=== PATIENT | male | born 1980 | race African-American/Black ===

== ENCOUNTER 2018-03-12 00:28 | Emergency (ER) | payer OTHER ==
--- NOTE | 2018-03-12 01:43 | PDOC ---
History of Present Illness <SánchezKristin - Last Filed: 03/12/18 05:47> - General History Source: Patient - History of Present Illness Initial Comments: 03/12/18 01:41 37 year old male presents c/o L ankle and knee pain. Patient states he was ambulating 2-3 days previous when he twisted his ankle and has been experiencing pain while ambulating and at rest since that time. Denies any fall , LOC, head trauma. Ambulating and performing ADL's with intermittent pain. Patient denies any chest pain, shortness of breath, abdominal pain, nausea/ vomiting, diarrhea/constipation, fevers/chills. <Malaika Zepeda - Last Filed: 03/12/18 05:48> - General Chief Complaint: Injury Stated Complaint: KNEE AND ANKLE PAIN Time Seen by Provider: 03/12/18 01:36 Past History <SánchezKristin - Last Filed: 03/12/18 05:47> - Past Medical History Asthma: Yes - Immunization History Immunization Up to Date: No - Suicide/Smoking/Psychosocial Hx Smoking Status: No Smoking History: Never smoked Have you smoked in the past 12 months: No Number of Cigarettes Smoked Daily: 10 Information on smoking cessation initiated: No 'Breaking Loose' booklet given: 05/18/17 Hx Alcohol Use: No Drug/Substance Use Hx: No Substance Use Type: None <Malaika eZpeda - Last Filed: 03/12/18 05:48> - Past Medical History Allergies/Adverse Reactions: Allergies Allergy/AdvReac Type Severity Reaction Status Date / Time crab Allergy Verified 03/12/18 01:40 Home Medications: Ambulatory Orders NK [No Known Home Medication] 05/18/17 Review of Systems - Review of Systems Constitutional: No: Chills, Fever HEENTM: No: Recent change in vision Respiratory: No: Cough, Shortness of Breath Cardiac (ROS): No: Chest Pain, Lightheadedness, Palpitations, Syncope ABD/GI: No: Constipated, Diarrhea, Nausea, Vomiting : No: Burning, Dysuria <Malaika Zepeda - Last Filed: 03/12/18 05:48> *Physical Exam - Vital Signs Last Vital Signs Temp Pulse Resp BP Pulse Ox 98.2 F 87 18 125/92 99 03/12/18 01:35 03/12/18 01:35 03/12/18 01:35 03/12/18 01:35 03/12/18 01:35 <Kristin Sánchez - Last Filed: 03/12/18 05:47> - Vital Signs Last Vital Signs Temp Pulse Resp BP Pulse Ox 98.2 F 87 18 125/92 99 03/12/18 01:35 03/12/18 01:35 03/12/18 01:35 03/12/18 01:35 03/12/18 01:35 - Physical Exam General Appearance: Yes: Nourished, Appropriately Dressed HEENT: positive: EOMI, TRU Neck: positive: Trachea midline, Supple Respiratory/Chest: positive: Lungs Clear Cardiovascular: positive: S1, S2 Vascular Pulses: Doralis-Pedis (L): 2+ Gastrointestinal/Abdominal: positive: Normal Bowel Sounds, Soft Extremity: positive: Normal Capillary Refill, Normal Inspection, Other (LLE: 2+ pedal pulse, lateral malleolus tenderness, no tibial tenderness, full ROM) Integumentary: positive: Normal Color, Dry, Warm Neurologic: positive: Fully Oriented, Alert <Malaika Zepeda - Last Filed: 03/12/18 05:48> ED Treatment Course - LABORATORY CBC & Chemistry Diagram: 03/12/18 03:02 03/12/18 05:00 <Kristin Sánchez - Last Filed: 03/12/18 05:47> - LABORATORY CBC & Chemistry Diagram: 03/12/18 03:02 03/12/18 05:00 <Malaika Zepeda - Last Filed: 03/12/18 05:48> Medical Decision Making - Medical Decision Making 03/12/18 02:02 37 year old male presents with LLE pain following twisting his ankle. Physical exam significant for L lateral malleolus tenderness, TTP of L knee. At patient actively intoxicated at time of PE, unreliable PE, will XR L ankle and knee. Reassess. 03/12/18 02:13 L ankle, knee XR, Tib/Fib negative for acute fracture. 03/12/18 02:50 Will apply Jansen dressing + hard boot and discharge with return precautions and follow up with orthopedic surgery. I discussed the physical exam findings, ancillary test results and final diagnoses with the patient. I answered all of the patient's questions. The patient was satisfied with the care received and felt comfortable with the discharge plan and treatment plan. The patient will return to the Emergency Department with any new, persistent or worsening symptoms. <Malaika Zepeda - Last Filed: 03/12/18 05:48> *DC/Admit/Observation/Transfer <Kristin Sánchez - Last Filed: 03/12/18 05:47> - Discharge Dispostion Admit: No <Mj Zepedaica - Last Filed: 03/12/18 05:48> Diagnosis at time of Disposition: Left ankle injury, Dehydration - Discharge Dispostion Disposition: HOME Condition at time of disposition: Improved - Referrals Referrals: ON STAFF,NOT [Primary Care Provider] - Timbo Jones MD [Staff Physician] - - Patient Instructions Printed Discharge Instructions: DI for Knee Pain, Smoking Cessation Associated with Decreases Risk of Complications After Jorge L, Positive Mental Health Changes Found After Smoking Cessation Additional Instructions: Make a follow-up appointment with orthopedic surgery in the next 48 hours. Return to the Emergency Department for any new/worsening/concerning symptoms. - Post Discharge Activity Forms/Work/School Notes: Back to Work
[2018-03-12 01:49] VITALS: BP 125/92; PULSE 87; TEMP 98.2; BMI 28.1
[2018-03-12] MEDS ORDERED: SODIUM CHLORIDE 0.9% 500 ML INFUS.BAG IV ONE (03:36)
--- NOTE | 2018-03-12 03:44 | PDOC ---
Attending Attestation - Resident Resident Name: Mj Zepedaica - ED Attending Attestation I have performed the following: I have examined & evaluated the patient, The case was reviewed & discussed with the resident - HPI HPI: 03/12/18 03:41 Pt states he comes after a fall last week. States that he was helpin a neighbor [employer]bell stuff and he fell down steps. Left andkle and knee pain. Now with pain running down the lower leg from knee to ankle and back. Pt appears dishevled and he tells me that he recenlt has not been eating well. He is tachycardic at rest, and he has poor dentition. His tongue is also bright red/pink. When I ask him if he drinks alcohol and is an alcoholic he first denies it then tells me that he used to be an alcopholic. States that he is not any more. However his last drink was today. - Physicial Exam PE: 03/12/18 05:03 Agree with resident exam - Medical Decision Making 03/12/18 05:03 XRAYS of tibfib/ankle as well as knee all WNL; Pt has no swelling and no tenderness on exam. Pt is stable for discharge. Labs were checked and all WNL. Pt hydrated.
[2018-03-12 03:58] LABS: BASO % 0.8 % (0-2.0); EOS % 6.5 % (0-4.5); HEMATOCRIT 48.4 % (35.4-49); HEMOGLOBIN 16.6 GM/dL (11.7-16.9); LYMPH % 55.2 % (8-40); MCH 30.1 pg (25.7-33.7); MCHC 34.4 g/dl (32.0-35.9); MEAN CELL VOLUME 87.6 fl (80-96); MEAN PLT VOLUME 8.6 fl (7.5-11.1); NEUT % 28.5 % (42.8-82.8); PLATELET COUNT 301 K/MM3 (134-434); RBC 5.52 M/mm3 (4.00-5.60); RDW 13.2 % (11.9-15.9); WHITE BLOOD COUNT 4.7 K/mm3 (4.0-10.0)
[2018-03-12 04:33] LABS: ALBUMIN 4.1 g/dl (3.4-5.0); ANION GAP 7 (8-16); BILIRUBIN,TOTAL 0.5 mg/dL (0.2-1.0); BLOOD UREA NITROGEN 12 mg/dL (7-18); CALCIUM 9.1 mg/dL (8.5-10.1); CHLORIDE 104 mmol/L (98-107); CO2 30 mmol/L (21-32); CREATININE 0.9 mg/dL (0.7-1.3); GLUCOSE,RANDOM 80 mg/dL (74-106); SGPT/ALT 85 U/L (12-78); SODIUM 141 mmol/L (136-145); TOT PROT 7.9 g/dl (6.4-8.2)
[2018-03-12 05:39] LABS: ALBUMIN 3.9 g/dl (3.4-5.0); ALK PHOS 71 U/L (45-117); ANION GAP 7 (8-16); BILIRUBIN,TOTAL 0.4 mg/dL (0.2-1.0); BLOOD UREA NITROGEN 12 mg/dL (7-18); CALCIUM 8.5 mg/dL (8.5-10.1); CHLORIDE 108 mmol/L (98-107); CO2 26 mmol/L (21-32); CREATININE 0.8 mg/dL (0.7-1.3); GLUCOSE,RANDOM 83 mg/dL (74-106); POTASSIUM 4.2 mmol/L (3.5-5.1); SGOT/AST 43 U/L (15-37); SGPT/ALT 78 U/L (12-78); SODIUM 141 mmol/L (136-145); TOT PROT 7.3 g/dl (6.4-8.2)
== END 2018-03-12 06:21 | disposition home or self-care (01) ==
LOC: SUPCPDRO 00:28 → JER 00:28
PROC: 3E0337Z Introduction of Electrolytic and Water Balance Substance into Peripheral Vein, Percutaneous Approach (ICD-10-PCS; principal; 2018-03-12)
DX: S99.912A Unspecified injury of left ankle, initial encounter (principal); X58.XXXA Exposure to other specified factors, initial encounter; Y93.9 Activity, unspecified; Y92.9 Unspecified place or not applicable; E86.0 Dehydration
CPT/HCPCS: 36415; 73562-TC-LT-FY; 73590-TC-LT-FY; 73610-TC-LT-FY; 73630-TC-LT; 80053; 80307; 85025; 99281-25

== ENCOUNTER 2019-04-29 08:27 | Emergency (ER) | payer SELFPAY, OTHER | END 2019-04-29 13:12 | disposition home or self-care (01) | LOC: FER 08:27 ==

== ENCOUNTER 2019-05-02 09:36 | Emergency (ER) | payer OTHER | END 2019-05-02 10:20 | disposition home or self-care (01) | LOC: FER 09:36 ==

== ENCOUNTER 2019-07-04 06:36 | Emergency (ER) | payer BC, OTHER | END 2019-07-04 09:06 | disposition home or self-care (01) | LOC: JER 06:36 ==

== ENCOUNTER 2019-08-07 17:20 | Observation (INO) | payer BC ==
--- NOTE | 2019-08-07 17:29 | PDOC ---
Rapid Medical Evaluation Time Seen by Provider: 08/07/19 17:25 Medical Evaluation: Allergies Allergy/AdvReac Type Severity Reaction Status Date / Time crab Allergy Intermediate Rash Verified 04/29/19 08:30 08/07/19 17:26 Patient presents to ED with complaints of: memory lapse while in shower at 430pm , left arm weakness pastora this am, coworkers stated pt was unable to recall their names this afternoon, no c/o headache patient on brief exam: vss, Patient ordered for: head ct, labs, drug tox, ua, ekg Patient to proceed to the ED Discharge Disposition - Diagnosis Memory difficulties, Transient ischemic attack - Discharge Dispostion Condition at time of disposition: Fair - Referrals - Patient Instructions - Post Discharge Activity
[2019-08-07 18:32] LABS: PH,URINE 7.5 (5.0-8.0); URINE APPEARANCE CLEAR; URINE BILIRUBIN NEGATIVE (NEGATIVE); URINE COLOR YELLOW; URINE GLUCOSE (UA) NEGATIVE (NEGATIVE); URINE KETONE NEGATIVE (NEGATIVE); URINE LEUK ESTERASE NEGATIVE (NEGATIVE); URINE NITRITE NEGATIVE (NEGATIVE); URINE PROTEIN NEGATIVE (NEGATIVE)
[2019-08-07 18:34] LABS: BASO % 0.6 % (0-2.0); EOS % 3.4 % (0-4.5); LYMPH % 45.3 % (8-40); MCH 30.8 pg (25.7-33.7); MCHC 33.9 g/dl (32.0-35.9); MEAN CELL VOLUME 90.7 fl (80-96); MEAN PLT VOLUME 8.4 fl (7.5-11.1); NEUT % 42.7 % (42.8-82.8); PLATELET COUNT 309 K/MM3 (134-434); RBC 5.51 M/mm3 (4.00-5.60); RDW 13.7 % (11.9-15.9); WHITE BLOOD COUNT 4.5 K/mm3 (4.0-10.0)
[2019-08-07 19:05] LABS: ALBUMIN 4.1 g/dl (3.4-5.0); BILIRUBIN,TOTAL 0.4 mg/dL (0.2-1); BLOOD UREA NITROGEN 14.5 mg/dL (7-18); CALCIUM 9.2 mg/dL (8.5-10.1); CREATININE 1.2 mg/dL (0.55-1.3); POTASSIUM 4.1 mmol/L (3.5-5.1); TOT PROT 7.6 g/dl (6.4-8.2)
[2019-08-07 19:10] LABS: INR 1.08 (0.83-1.09); PROTHROMBIN TIME (PATIENT) 12.8 SEC (9.7-13.0)
[2019-08-07 19:27] LABS: MAGNESIUM 2.1 mg/dL (1.8-2.4)
[2019-08-07] MEDS ORDERED: DEXTROSE 50%-WATER - 25 GM/50 ML VIAL IVPUSH ONE (19:48)
[2019-08-07] MEDS ORDERED: SODIUM CHLORIDE 0.9% 1000 ML INFUS.BAG IV ONE (19:48)
--- NOTE | 2019-08-07 19:54 | PDOC ---
Documentation entered by Hill Landry SCRIBE, acting as scribe for Lisa Quevedo DO. Lisa Quevedo DO: This documentation has been prepared by the Frantz bradley Daniel, SCRIBE, under my direction and personally reviewed by me in its entirety. I confirm that the documentation accurately reflects all work, treatment, procedures, and medical decision making performed by me. History of Present Illness - General Chief Complaint: CVA/TIA Stated Complaint: LEFT ARM NUMBNESS/MEMORY LOSS 4:30AM Time Seen by Provider: 08/07/19 17:25 History Source: Patient, Parent(s) Exam Limitations: No Limitations - History of Present Illness Initial Comments: 08/07/19 19:57 The patient is a 38 year old male with no past medical history here today for evaluation of left arm numbness and memory loss. The patient reports that he woke up this morning around 4:30 AM and noticed left arm weakness and numbness and memory loss where he couldnt recognize his coworkers. The patients mother reports that the patients boss called her around 9 AM and asked her to pick the patient up since he was having memory loss. Patient reports that the memory loss has since resolved and that his left arm weakness is better but still present. Denies taking any medications today. Patient denies headache, lightheadedness. Denies fever, chills. Denies chest pain, shortness of breath. Denies vision changes, speech changes. Denies travel. Allergies: crab Social history: Confirms alcohol, tobacco use. Denies illicit drug use. PCP: none Past History - Past Medical History Allergies/Adverse Reactions: Allergies Allergy/AdvReac Type Severity Reaction Status Date / Time crab Allergy Intermediate Rash Verified 08/07/19 17:29 Home Medications: Ambulatory Orders Cyclobenzaprine HCl [Flexeril 10 mg] 10 mg PO BID PRN 4 Days #14 tablet Naproxen [Naprosyn] 500 mg PO BID PRN 4 Days #14 tablet 07/04/19 Asthma: Yes COPD: No - Immunization History Immunization Up to Date: No - Suicide/Smoking/Psychosocial Hx Smoking Status: No Smoking History: Current every day smoker Have you smoked in the past 12 months: Yes Number of Cigarettes Smoked Daily: 10 Information on smoking cessation initiated: No 'Breaking Loose' booklet given: 05/18/17 Hx Alcohol Use: No Drug/Substance Use Hx: No Substance Use Type: None Review of Systems - Review of Systems Able to Perform ROS?: Yes Comments:: 08/07/19 19:58 GENERAL/CONSTITUTIONAL: No fever or chills. No weakness. HEAD, EYES, EARS, NOSE AND THROAT: No change in vision. No ear pain or discharge. No sore throat. GASTROINTESTINAL: No nausea, vomiting, diarrhea or constipation. GENITOURINARY: No dysuria, frequency, or change in urination. CARDIOVASCULAR: No chest pain or shortness of breath. RESPIRATORY: No cough, wheezing, or hemoptysis. MUSCULOSKELETAL: No joint or muscle swelling or pain. No neck or back pain. SKIN: No rash NEUROLOGIC: +left arm weakness and numbness. +memory loss. No headache, vertigo , loss of consciousness. ENDOCRINE: No increased thirst. No abnormal weight change. HEMATOLOGIC/LYMPHATIC: No anemia, easy bleeding, or history of blood clots. ALLERGIC/IMMUNOLOGIC: No hives or skin allergy. *Physical Exam - Vital Signs Last Vital Signs Temp Pulse Resp BP Pulse Ox 98.3 F 86 19 118/65 100 08/07/19 17:26 08/07/19 17:26 08/07/19 17:26 08/07/19 17:26 08/07/19 17:26 - Physical Exam Comments: 08/07/19 19:58 Constitutional: Awake, alert, oriented. No acute distress. Head: Normocephalic. Atraumatic Eyes: PERRL. EOMI. Conjunctivae are not pale. ENT: Mucous membranes are moist and intact. Posterior pharynx without exudates or erythema. Uvula midline. Neck: Supple. Full ROM. No lymphadenopathy. Cardiovascular: Regular rate. Regular rhythm. S1, S2 regular. Distal pulses are 2+ and symmetric. Pulmonary/Chest: No evidence of respiratory distress. Clear to auscultation bilaterally No wheezing, rales or rhonchi. Abdominal: Soft and non-distended. There is no tenderness. No rebound, guarding or rigidity. No organomegaly. No palpable masses. Good bowel sounds. Back: No CVA tenderness. Musculoskeletal: No edema. No cyanosis. No clubbing. Full range of motion in all extremities. Nocalf tenderness. Radial/pedal pulses are intact and 2+ bilaterally Skin: Skin is warm and dry. No petechiae. No purpura. Neurological: +sensory deficit of the left upper extremity. Alert and oriented to person, place, and time. Cranial nerves II-XII are grossly intact. Normal speech. Strength is grossly symmetric. Psychiatric: Good eye contact. Normal interaction, affect and behavior. NIH Stroke Scale - Last Known Well Date/Time & Onset Date Last Known Well: 08/07/19 Time Last Known Well: 04:30 - Initial Evaluation Level of consciousness: Alert Ask patient the month and their age: Answers both correctly Ask patient to open & close eyes; make fist and let go: Obeys both correctly Best gaze (horizontal eye movement): Normal Visual field testing: No visual field loss Facial paresis (Show teeth/raise eyebrows/close eyes tight): Normal symmetrical movement Motor Function: Left Arm: Normal Motor Function: Right Arm: Normal (extends arm 90 (or 45) degrees for 10 seconds without drift Motor Function: Left Leg: Normal (extends leg 30 degrees for 5 seconds without drift) Motor Function: Right Leg: Normal (extends leg 30 degrees for 5 seconds without drift) Limb Ataxia: No ataxia Sensory(Use pinprick test arms,legs,trunk,face/side to side): Mild to moderate decrease in sensation Best language (Describe picture, name items, read sentences): No Aphasia Dysarthria (read several words): Normal articulation Extinction and Inattention: No abnormality - Total Score NIH Stroke Scale Score: 1 tPA Exclusion checklist 3-4.5h - Time Elapsed Date last known well: 08/07/19 Time last known well: 04:30 Elaspsed time: Day(s) and 16 Hour(s) and 0 Minutes - Thrombolytic Therapy Candidate Is patient eligible for thrombolytic therapy: No - Ineligibility reason(s) Reasons No tPA given: Outside of window - delayed arrival (symptoms started at 430a) Heart Score/ECG Review - ECG Intrepretation Comment:: 08/07/19 20:20 sinus at 84, nl axis, nl interval, no acute st/t wave findings Critical Care Time/MDM Note - Medical Decision Making Note: 08/07/19 19:52 a/p: 38yo male with hx of smoking tobacco with symptoms concerning for tia/cva that started at 430a today -pt states when he was getting dressed for work he noticed L arm weakness and paresthesias - weakness has since resolved, still with sensory loss -also with memory loss this AM - noticed started at 430 - he couldn't recall events, but also noticed by his boss at work- he couldn't recall names of coworkers -pt states memory loss has resolved -denies head trauma -out of the window for tpa -concern for tia vs cva -labs, head ct, ekg peformed in triage -pt will need obs vs admission for mri and eval by neurology -call placed to Dr. Howard 08/07/19 19:[address] is nonacute 08/07/19 19:55 elevated hgb/hct secondary to smoking glu 57- will give 1/2 amp d50 08/07/19 20:01 cxr clear 08/07/19 20:[address] howard who agrees w mri brain, asa, echo, carotids will see patient in consult 08/07/19 20:25 pt updated on labs and imaging results 08/07/19 20:30 case discussed with hilary who accepts pt to service *DC/Admit/Observation/Transfer Diagnosis at time of Disposition: Memory difficulties, Transient ischemic attack - Discharge Dispostion Condition at time of disposition: Fair Decision to Admit order: Yes - Referrals - Patient Instructions - Post Discharge Activity - Attestations Physician Attestion: 08/07/19 20:30 I, Dr. Lisa Quevedo, DO, attest that this document has been prepared under my direction and personally reviewed by me in its entirety. I further attest, that it accurately reflects all work, treatment, procedures and medical decision -making performed by me.
[2019-08-07] MEDS ORDERED: ASPIRIN 81 MG CHEWABLE TABLETS PO ONE (20:01)
[2019-08-07 20:14] LABS: COCAINE, UR NEGATIVE ng/ml (CUTOFF=300); METHADONE, UR NEGATIVE ng/ml (CUTOFF=300); OPIATES, URI NEGATIVE ng/ml (CUTOFF=300); PHENCYCLIDINE,URINE NEGATIVE ng/ml (CUTOFF=25); URINE AMPHETAMINES NEGATIVE ng/ml (CUTOFF=500); URINE BARBITURATES NEGATIVE ng/ml (CUTOFF=200); URINE BENZODIAZEPINES NEGATIVE ng/ml (CUTOFF=200)
[2019-08-07] MEDS ORDERED: DEXTROSE 50%-WATER 25 GM/50 ML DISP.SYRIN ONE (20:14)
[2019-08-07] MEDS ORDERED: ASPIRIN 81 MG CHEWABLE TABLETS ONE (20:14)
[2019-08-07] MEDS ORDERED: HEPARIN NA (PORCINE) 5,000 UNITS/ML 1ML VIAL ONE (22:17)
--- NOTE | 2019-08-07 22:23 | HP ---
CHIEF COMPLAINT: L arm weakness and numbness PCP: none HISTORY OF PRESENT ILLNESS: Luis Fernando Peña is a 38 year old male with no significant past medical history who presented after waking up with left arm numbness and weakness and memory loss. 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 He then left for work and at work it was noticed by his boss that he wasn't able to remember the names of his coworkers and continued to have left arm weakness and numbness. The patient was picked up by his mother after 9 AM. Symptoms of difficulty name finding persisted and patient was taken to ED. Patient stated that he did not have any other associated symptoms of visual changes, field cuts, dizziness, lightheadedness, headaches, tinnitus, dysphagia , dysarthria, other areas of focal weakness or parasthesias, poor gait, chest pain, shortness of breath, nausea, vomiting, abdominal pain, constipation, diarrhea, urinary symptoms. Denies head trauma, falls, recent intoxication (had half a beer yesterday), sick contacts. Stated that he has had relatively poor appetite recently due to issues with a girlfriend and has not been consuming foods as much. Patient was receiving BGM finger stick on L finger and jumped up and yelled with pain upon stick. 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 Has lived in [facility] for all of his life. Family History: Father- DM Allergies crab Allergy (Intermediate, Verified 08/07/19 17:29) Rash HOME MEDICATIONS: Home Medications Medication Instructions Recorded Cyclobenzaprine HCl [Flexeril 10 10 mg PO BID PRN 4 Days #14 tablet 07/04/19 mg] Naproxen [Naprosyn] 500 mg PO BID PRN 4 Days #14 tablet 07/04/19 REVIEW OF SYSTEMS CONSTITUTIONAL: Absent: fever, chills, diaphoresis, generalized weakness, malaise, loss of appetite, weight change HEENT: Absent: rhinorrhea, nasal congestion, throat pain, throat swelling, difficulty swallowing, visual changes CARDIOVASCULAR: Absent: chest pain, syncope, palpitations, irregular heart rate, lightheadedness , peripheral edema RESPIRATORY: Absent: cough, shortness of breath, dyspnea with exertion, orthopnea, wheezing, GASTROINTESTINAL: Absent: abdominal pain, abdominal distension, nausea, vomiting, diarrhea, constipation, GENITOURINARY: Absent: dysuria, frequency, urgency, hesitancy, hematuria, flank pain, MUSCULOSKELETAL: Absent: myalgia, arthralgia, joint swelling, back pain, neck pain SKIN: Absent: rash, itching, pallor HEMATOLOGIC/IMMUNOLOGIC: Absent: easy bleeding, easy bruising, lymphadenopathy, frequent infections ENDOCRINE: Absent: unexplained weight gain, unexplained weight loss, heat intolerance, cold intolerance NEUROLOGIC: L sided arm weakness and numbness, confusion Absent: headache, , dizziness, unsteady gait, seizure, bladder or bowel incontinence PSYCHIATRIC: Absent: anxiety, depression, suicidal or homicidal ideation, hallucinations. PHYSICAL EXAMINATION Vital Signs - 24 hr 08/07/19 17:26 Temperature 98.3 F Pulse Rate 86 Respiratory 19 Rate Blood Pressure 118/65 O2 Sat by Pulse 100 Oximetry (%) GENERAL: Awake, alert, and fully oriented, in no acute distress. HEAD: Normal with no signs of trauma. EYES: Pupils equal, round and reactive to light, extraocular movements intact, some conjuctival injection. EARS, NOSE, THROAT: Ears normal, nares patent, oropharynx clear without exudates. Moist mucous membranes. NECK: Normal range of motion, supple without lymphadenopathy, JVD. LUNGS: Breath sounds equal, clear to auscultation bilaterally. No wheezes, and no crackles. No accessory muscle use. HEART: Regular rate and rhythm, normal S1 and S2 without murmur, rub. ABDOMEN: Soft, nontender, not distended, normoactive bowel sounds, no guarding, no rebound, no masses. MUSCULOSKELETAL: Normal range of motion at all joints. No bony deformities or tenderness. No CVA tenderness. UPPER EXTREMITIES: 2+ pulses, warm, well-perfused. No cyanosis. No clubbing. No peripheral edema. LOWER EXTREMITIES: 2+ pulses, warm, well-perfused. No calf tenderness. No peripheral edema. NEUROLOGICAL: Cranial nerves II-XII intact. Visual ehath intact, no dysarthria. 5/5 muscle strength bilaterally upper and lower extremities. Sensation intact to gross touch throughout. Finger to nose and heel to daley intact. Romberg negative. PSYCHIATRIC: Cooperative. Good eye contact. Appropriate mood and affect. SKIN: Warm, dry, normal turgor, no rashes or lesions noted, normal capillary refill. Laboratory Results - last 24 hr 08/07/19 08/07/19 08/07/19 18:00 18:06 18:06 WBC 4.5 RBC 5.51 Hgb 17.0 H Hct 50.0 H MCV 90.7 MCH 30.8 MCHC 33.9 RDW 13.7 Plt Count 309 MPV 8.4 Absolute Neuts (auto) 1.9 Neutrophils % 42.7 L D Lymphocytes % 45.3 H Monocytes % 8.0 Eosinophils % 3.4 Basophils % 0.6 Nucleated RBC % 0 PT with INR 12.80 INR 1.08 Sodium Potassium Chloride Carbon Dioxide Anion Gap BUN Creatinine Est GFR (CKD-EPI)AfAm Est GFR (CKD-EPI)NonAf POC Glucometer Random Glucose Calcium Magnesium Total Bilirubin AST ALT Alkaline Phosphatase Creatine Kinase 226 Creatine Kinase Index 0.7 CK-MB (CK-2) 1.8 Troponin I < 0.02 Total Protein Albumin Urine Color Urine Appearance Urine pH Ur Specific [place] Urine Protein Urine Glucose (UA) Urine Ketones Urine Blood Urine Nitrite Urine Bilirubin Urine Urobilinogen Ur Leukocyte Esterase Opiates Screen Methadone Screen Barbiturate Screen Phencyclidine Screen Ur Amphetamines Screen MDMA (Ecstasy) Screen Benzodiazepines Screen Cocaine Screen U Marijuana (THC) Screen Blood Type Antibody Screen 08/07/19 08/07/19 08/07/19 18:06 18:06 18:06 WBC RBC Hgb Hct MCV MCH MCHC RDW Plt Count MPV Absolute Neuts (auto) Neutrophils % Lymphocytes % Monocytes % Eosinophils % Basophils % Nucleated RBC % PT with INR INR Sodium 136 Potassium 4.1 Chloride 102 Carbon Dioxide 29 Anion Gap 5 L BUN 14.5 Creatinine 1.2 Est GFR (CKD-EPI)AfAm 89.00 Est GFR (CKD-EPI)NonAf 76.79 POC Glucometer Random Glucose 57 L Calcium 9.2 Magnesium 2.1 Total Bilirubin 0.4 AST 31 ALT 64 H Alkaline Phosphatase 75 Creatine Kinase Creatine Kinase Index CK-MB (CK-2) Troponin I Total Protein 7.6 Albumin 4.1 Urine Color Urine Appearance Urine pH Ur Specific [place] Urine Protein Urine Glucose (UA) Urine Ketones Urine Blood Urine Nitrite Urine Bilirubin Urine Urobilinogen Ur Leukocyte Esterase Opiates Screen Negative Methadone Screen Negative Barbiturate Screen Negative Phencyclidine Screen Negative Ur Amphetamines Screen Negative MDMA (Ecstasy) Screen Negative Benzodiazepines Screen Negative Cocaine Screen Negative U Marijuana (THC) Screen Negative Blood Type O POSITIVE Antibody Screen Negative 08/07/19 08/07/19 18:06 21:06 WBC RBC Hgb Hct MCV MCH MCHC RDW Plt Count MPV Absolute Neuts (auto) Neutrophils % Lymphocytes % Monocytes % Eosinophils % Basophils % Nucleated RBC % PT with INR INR Sodium Potassium Chloride Carbon Dioxide Anion Gap BUN Creatinine Est GFR (CKD-EPI)AfAm Est GFR (CKD-EPI)NonAf POC Glucometer 99 Random Glucose Calcium Magnesium Total Bilirubin AST ALT Alkaline Phosphatase Creatine Kinase Creatine Kinase Index CK-MB (CK-2) Troponin I Total Protein Albumin Urine Color Yellow Urine Appearance Clear Urine pH 7.5 Ur Specific [place] 1.017 Urine Protein Negative Urine Glucose (UA) Negative Urine Ketones Negative Urine Blood Negative Urine Nitrite Negative Urine Bilirubin Negative Urine Urobilinogen 1.0 Ur Leukocyte Esterase Negative Opiates Screen Methadone Screen Barbiturate Screen Phencyclidine Screen Ur Amphetamines Screen MDMA (Ecstasy) Screen Benzodiazepines Screen Cocaine Screen U Marijuana (THC) Screen Blood Type Antibody Screen EKG--> NSR, no ST segment changes, QTc 385 ASSESSMENT/PLAN: Luis Fernando Peña is a 38 year old male with no significant past medical history who presented after waking up with left arm numbness and weakness and memory loss. CVA/TIA Symptoms BROOK Hypoglycemia Tobacco Use CVA/TIA symptoms - only risk factors of smoking and questionable chronic polycythemia - given aspirin - GLU 57 and can be mimic of stroke, context of patient having poor appetite recently - NIH 0 upon new examination - CT with no acute pathology - echo - carotids dopplers - lipids panel, A1c, TSH - repeat labs - neurology consulted recs appreciated - defer MRI/MRA to neurology as signs and symptoms questionable for infarction - cardiac monitoring - fall and dysphagia precautions - Physical therapy consult - speech and swallow consult - EPO level for polycythemia eval, apart from smoking no risk factors identified BROOK - likely in setting of poor po intake - CRE 1.2 (baseline 0.8) - NS at 42cc/hr - encourage po intake when cleared for diet Hypoglycemia - likely in setting of poor po intake - encourage diet when cleared for diet Tobacco Use - encouraged to quit 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 - New Patient This patient is new to me today: Yes Date on this admission: 08/08/19 - Critical Care Critical Care patient: No
[2019-08-07] MEDS: SODIUM CHLORIDE 1,000 ML IV SCH (22:58)
[2019-08-07] MEDS: HEPARIN NA (PORCINE) 5,000 UNITS/ML 1ML VIAL SQ SCH (22:58)
--- NOTE | 2019-08-08 04:32 | PN ---
Teaching Attending Note Name of Resident: Malcolm Langley ATTENDING PHYSICIAN STATEMENT I saw and evaluated the patient. I reviewed the resident's note and discussed the case with the resident. I agree with the resident's findings and plan as documented. SUBJECTIVE: 38 year old male previouslty healthy presented after waking up with left arm numbness and amnesia which started around 430amon 03/07. Patient denied any headaches, vertigo, or nausea. Amnesia resolved shortly after when he went to work, however left arm numbness still persistent. OBJECTIVE: Last Vital Signs Temp Pulse Resp BP Pulse Ox 97.3 F L 77 17 117/76 100 08/08/19 03:38 08/08/19 03:38 08/08/19 03:38 08/08/19 03:38 08/08/19 03:38 general- nad, aaox3 heent -atraumatic, cn 3-12 grossly intact cv-s1+s2+rrr neuro -extremities motor 4/4 in all extremities, left upper extremity sensation numb relative to right Abnormal Lab Results 08/07/19 08/07/19 18:06 18:06 Hgb 17.0 H Hct 50.0 H Neutrophils % 42.7 L D Lymphocytes % 45.3 H Anion Gap 5 L Random Glucose 57 L ALT 64 H imaging reviewed. Head CT noted to be unremarkable for any acute insults ASSESSMENT AND PLAN: TIA? Temporary amnesia, left upper extremity sensory loss. Patient is young and lacks risk factors for a CVA. Head CT negative. Possibly musculoskeletal involvement since patient does a lot of heavy lifting. -tele/obs -npo -bed/rest -neuro consult -neuro-watch -echo -carotid doppler -consider brain mri -pt evaluation -dvt ppx
[2019-08-08] MEDS: HEPARIN NA (PORCINE) 5,000 UNITS/ML 1ML VIAL SQ SCH ×3 (06:30→22:54)
[2019-08-08 07:15] VITALS: BMI 27.1
[2019-08-08 07:41] LABS: HEMATOCRIT 48.8 % (35.4-49); HEMOGLOBIN 16.6 GM/dL (11.7-16.9); MCH 30.7 pg (25.7-33.7); MEAN CELL VOLUME 90.3 fl (80-96); MEAN PLT VOLUME 8.6 fl (7.5-11.1); PLATELET COUNT 271 K/MM3 (134-434); RBC 5.41 M/mm3 (4.00-5.60); RDW 13.5 % (11.9-15.9); WHITE BLOOD COUNT 3.6 K/mm3 (4.0-10.0)
[2019-08-08 08:07] LABS: CHOLESTEROL 150 mg/dL (50-200); HDL CHOLESTEROL 26 mg/dL (40-60); TRIGLYCERIDES 164 mg/dL (0-150)
[2019-08-08 08:15] LABS: ALBUMIN 3.5 g/dl (3.4-5.0); BILIRUBIN,TOTAL 0.7 mg/dL (0.2-1); BLOOD UREA NITROGEN 12.8 mg/dL (7-18); CALCIUM 8.7 mg/dL (8.5-10.1); CREATININE 0.9 mg/dL (0.55-1.3); POTASSIUM 4.5 mmol/L (3.5-5.1); TOT PROT 6.5 g/dl (6.4-8.2)
--- NOTE | 2019-08-08 08:45 | CONSULT ---
Consult - text type - Consultation Consultation Note: Neurology CHIEF COMPLAINT: L arm weakness and numbness PCP: none HISTORY OF PRESENT ILLNESS: Luis Fernando Peña is a 38 year old male with no significant past medical history who presented after waking up with left arm numbness and weakness and memory loss. 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 He then left for work and at work it was noticed by his boss that he wasn't able to remember the names of his coworkers and continued to have left arm weakness and numbness. The patient was picked up by his mother after 9 AM. Symptoms of difficulty name finding persisted and patient was taken to ED. Patient stated that he did not have any other associated symptoms of visual changes, field cuts, dizziness, lightheadedness, headaches, tinnitus, dysphagia, dysarthria, other areas of focal weakness or parasthesias, poor gait , chest pain, shortness of breath, nausea, vomiting, abdominal pain, constipation, diarrhea, urinary symptoms. Denies head trauma, falls, recent intoxication (had half a beer yesterday), sick contacts. Stated that he has had relatively poor appetite recently due to issues with a girlfriend and has not been consuming foods as much. Patient was receiving BGM finger stick on L finger and jumped up and yelled with pain upon stick. Head CT completed, no acute pathology, right maxillary sinustis noted. Carotid doppler completed, report pending. Discussed with ER overnight, advised MRI brain, patient ontinues to report numbness in his left upper extremity as compared to right, MR brain was not ordered and therefore we'll order it now. Discussed with resident this morning as well. Strength remains intact. 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 Has lived in [facility] for all of his life. Family History: Father- DM Allergies crab Allergy (Intermediate, Verified 08/07/19 17:29) Rash HOME MEDICATIONS: Home Medications Medication Instructions Recorded Cyclobenzaprine HCl [Flexeril 10 10 mg PO BID PRN 4 Days #14 tablet 07/04/19 mg] Naproxen [Naprosyn] 500 mg PO BID PRN 4 Days #14 tablet 07/04/19 REVIEW OF SYSTEMS CONSTITUTIONAL: Absent: fever, chills, diaphoresis, generalized weakness, malaise, loss of appetite, weight change HEENT: Absent: rhinorrhea, nasal congestion, throat pain, throat swelling, difficulty swallowing, visual changes CARDIOVASCULAR: Absent: chest pain, syncope, palpitations, irregular heart rate, lightheadedness , peripheral edema RESPIRATORY: Absent: cough, shortness of breath, dyspnea with exertion, orthopnea, wheezing, GASTROINTESTINAL: Absent: abdominal pain, abdominal distension, nausea, vomiting, diarrhea, constipation, GENITOURINARY: Absent: dysuria, frequency, urgency, hesitancy, hematuria, flank pain, MUSCULOSKELETAL: Absent: myalgia, arthralgia, joint swelling, back pain, neck pain SKIN: Absent: rash, itching, pallor HEMATOLOGIC/IMMUNOLOGIC: Absent: easy bleeding, easy bruising, lymphadenopathy, frequent infections ENDOCRINE: Absent: unexplained weight gain, unexplained weight loss, heat intolerance, cold intolerance NEUROLOGIC: L sided arm weakness and numbness, confusion Absent: headache, , dizziness, unsteady gait, seizure, bladder or bowel incontinence PSYCHIATRIC: Absent: anxiety, depression, suicidal or homicidal ideation, hallucinations. PHYSICAL EXAMINATION Vital Sign Period Temp Pulse Resp BP Sys/Roberson Pulse Ox Last 24 Hr 97.3 F-98.3 F 77-100 17-20 117-139/65-93 100-100 GENERAL: Awake, alert, and fully oriented, in no acute distress. HEAD: Normal with no signs of trauma. EYES: Pupils equal, round and reactive to light, extraocular movements intact, some conjuctival injection. EARS, NOSE, THROAT: Ears normal, nares patent, oropharynx clear without exudates. Moist mucous membranes. NECK: Normal range of motion, supple without lymphadenopathy, JVD. LUNGS: Breath sounds equal, clear to auscultation bilaterally. No wheezes, and no crackles. No accessory muscle use. HEART: Regular rate and rhythm, normal S1 and S2 without murmur, rub. ABDOMEN: Soft, nontender, not distended, normoactive bowel sounds, no guarding, no rebound, no masses. MUSCULOSKELETAL: Normal range of motion at all joints. No bony deformities or tenderness. No CVA tenderness. UPPER EXTREMITIES: 2+ pulses, warm, well-perfused. No cyanosis. No clubbing. No peripheral edema. LOWER EXTREMITIES: 2+ pulses, warm, well-perfused. No calf tenderness. No peripheral edema. NEUROLOGICAL: Cranial nerves II-XII intact. Visual heath intact, no dysarthria. 5/5 muscle strength bilaterally upper and lower extremities. Sensation intact to gross touch throughout. Finger to nose and heel to daley intact. Romberg negative. PSYCHIATRIC: Cooperative. Good eye contact. Appropriate mood and affect. SKIN: Warm, dry, normal turgor, no rashes or lesions noted, normal capillary refill. CBCD WBC 3.6 K/mm3 (4.0-10.0) L 08/08/19 05:53 RBC 5.41 M/mm3 (4.00-5.60) 08/08/19 05:53 Hgb 16.6 GM/dL (11.7-16.9) 08/08/19 05:53 Hct 48.8 % (35.4-49) 08/08/19 05:53 MCV 90.3 fl (80-96) 08/08/19 05:53 MCHC 34.0 g/dl (32.0-35.9) 08/08/19 05:53 RDW 13.5 % (11.9-15.9) 08/08/19 05:53 Plt Count 271 K/MM3 (134-434) 08/08/19 05:53 MPV 8.6 fl (7.5-11.1) 08/08/19 05:53 CMP Sodium 138 mmol/L (136-145) 08/08/19 05:53 Potassium 4.5 mmol/L (3.5-5.1) 08/08/19 05:53 Chloride 105 mmol/L (98-107) 08/08/19 05:53 Carbon Dioxide 28 mmol/L (21-32) 08/08/19 05:53 Anion Gap 5 MMOL/L (8-16) L 08/08/19 05:53 BUN 12.8 mg/dL (7-18) 08/08/19 05:53 Creatinine 0.9 mg/dL (0.55-1.3) 08/08/19 05:53 Random Glucose 75 mg/dL (74-106) 08/08/19 05:53 Calcium 8.7 mg/dL (8.5-10.1) 08/08/19 05:53 Total Bilirubin 0.7 mg/dL (0.2-1) 08/08/19 05:53 AST 26 U/L (15-37) 08/08/19 05:53 ALT 55 U/L (13-61) 08/08/19 05:53 Alkaline Phosphatase 62 U/L (45-117) 08/08/19 05:53 Total Protein 6.5 g/dl (6.4-8.2) 08/08/19 05:53 Albumin 3.5 g/dl (3.4-5.0) 08/08/19 05:53 CARDIAC ENZYMES Creatine Kinase 226 U/L (26-308) 08/07/19 18:06 Troponin I < 0.02 ng/ml (0.00-0.05) 08/07/19 18:06 EKG--> NSR, no ST segment changes, QTc 385 ASSESSMENT/PLAN: Luis Fernando Peña is a 38 year old male with no significant past medical history who presented after waking up with left arm numbness and weakness and memory loss. 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 He then left for work and at work it was noticed by his boss that he wasn't able to remember the names of his coworkers and continued to have left arm weakness and numbness. The patient was picked up by his mother after 9 AM. Symptoms of difficulty name finding persisted and patient was taken to ED. Head CT completed, no acute pathology, right maxillary sinustis noted. Carotid doppler completed, report pending. Discussed with ER overnight, advised MRI brain, patient ontinues to report numbness in his left upper extremity as compared to right, MR brain was not ordered and therefore we'll order it now. Discussed with resident this morning as well. Strength remains intact.
[2019-08-08] MEDS: NICOTINE 14 MG/24 HOURS TOPICAL PATCH TD SCH (10:05)
--- NOTE | 2019-08-08 10:05 | CONSULT ---
Admitting History and Physical - Primary Care Physician PCP: Ambar Anderson - Admission History of Present Illness: 38 year old presented after waking up with left arm numbness and amnesia. He reports that he could not remember coworkers names until he saw them on his phone. He denied weakness, speech,balane and ambulation and swallowing changes. History Source: Patient Limitations to Obtaining History: No Limitations - Smoking History Smoking history: Current every day smoker Have you smoked in the past 12 months: Yes Aproximately how many cigarettes per day: 10 - Alcohol/Substance Use Hx Alcohol Use: No History - Admission Reason For Visit: TRANSIENT ISCHEMIC ATTACK,MEMORY IMPAIRMENT - Diagnostics X-ray: Report Reviewed CT Scan: Report Reviewed MRI: Pending - General Mental Status: Alert and Oriented, Awake and Alert, Able to Follow Commands Attention: Intact Ability to Follow Directions: Excellent Head/Neck Control: WFL - Hearing Hearing: Normal Speech Evaluation - Communication Primary Language: BURMESE Communication: Yes: Within Normal Limits Oral Expression Ability: Yes: No Impairment - Speech Production Able to Make Needs Known: Yes: WNL Intelligibility: Yes: WNL - Speech Characteristics Voice Loudness: Normal Voice Pitch: Yes: Normal Voice Phonatory-based Quality: Yes: Normal Speech Pattern: Normal Speech Clarity: < 100% Nasal Resonance: Normal Articulation: Yes: Precise Rate of Speech: Intact - Language/Auditory Comprehension Follows: Yes: 2 Stage Simple Commands Observation: Able to respond to yes/no queries: Yes, Yes/No Confusion: No, Comprehends Conversational Speech: Yes - Language/Verbal Expression Able to Respond to Simple Queries: Yes: WNL Able to Communicate Wants and Needs: Yes: WNL Functional Communication Status: Yes: WNL Attention: Yes: Intact - 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 baseline?) Facial Symmetry on Retraction: Symmetrical Facial Movement: Controlled Sensation: Normal Against Resistance Opening: Normal Against Resistance Closing: Normal Pucker Lips: Normal Smile: Normal Lingual Movement: Symmetric Lingual Speed of Movement: Normal Lingual Movement Strgth Against Opposition: Normal Velopharyngeal Movement: Normal Laryngeal Elevation: WFL Laryngeal Movement: Able to Palpate Rate of Intake: WFL Bolus Size: WFL Labial Seal: WFL Chewing: WFL Oral Prep Time: WFL A-P Transit: WFL Pocketing: None Timing of Swallow: WFL Coughing/Throat Clear: No Change in Voice: No Recommendations - Speech Evaluation, Impression/Plan Impression: Pt reports resolution of symptoms. Speech/language, swallowing intact/functional Repetition of digits-5 achieved (7 WNL-Pt said "I'm always bad at that") - Dysphagia Impressions/Plan Swallowing Skills: WFL Dysphagia Impressions: No Impairment *Silent aspiration: cannot be R/O at bedside - Recommendations Diet Consistency: Regular Medication Administration: Whole with water Liquids: Thin Liquids
--- NOTE | 2019-08-08 14:07 | EKG ---
Test Reason : Blood Pressure : / mmHG Vent. Rate : 084 BPM Atrial Rate : 084 BPM P-R Int : 134 ms QRS Dur : 090 ms QT Int : 326 ms P-R-T Axes : 051 069 047 degrees QTc Int : 385 ms NORMAL SINUS RHYTHM NORMAL ECG WHEN COMPARED WITH ECG OF 02-MAY-2019 09:48, NO SIGNIFICANT CHANGE WAS FOUND Confirmed by RONY ROBERTSON MD ([id number]) on 08/08/2019 2:06:52 PM Referred By: Confirmed By:RONY ROBERTSON MD
--- NOTE | 2019-08-08 14:55 | ECHO ---
Name: ANJALI BENITO Exam:Adult Echocardiogram Study Date: 08/08/2019 10:30 AM Age: 38 yrs Reason For Study: R/O CVA/TIA STROKE Height: 67 in Weight: 172 lb BSA: 1.9 m2 MMode/2D Measurements & Calculations IVSd: 0.97 cm Ao root diam: 2.9 cm LVIDd: 4.3 cm LA dimension: 3.0 cm LVIDs: 3.1 cm LVPWd: 0.97 cm EDV(Teich): 82.5 ml LVOT diam: 2.1 cm ESV(Teich): 38.0 ml Doppler Measurements & Calculations MV E max francisco: 61.2 cm/sec Ao V2 max: 86.3 cm/sec MV A max francisco: 43.9 cm/sec Ao max P.0 mmHg MV E/A: 1.4 Ao V2 mean: 67.6 cm/sec MV dec time: 0.14 sec Ao mean P.0 mmHg Ao V2 VTI: 18.3 cm BALDEMAR(I,D): 2.5 cm2 AI P1/2t: 340.2 msec BALDEMAR(V,D): 3.1 cm2 AI max francisco: 338.5 cm/sec LV V1 max P.5 mmHg AI max P.3 mmHg LV V1 mean P.2 mmHg AI dec slope: 291.4 cm/sec2 LV V1 max: 78.3 cm/sec LV V1 mean: 50.1 cm/sec LV V1 VTI: 13.2 cm MR max francisco: 334.1 cm/sec SV(LVOT): 45.6 ml MR max P.8 mmHg TR max francisco: 163.3 cm/sec Med Peak E' Francisco: 10.4 cm/sec TR max P.7 mmHg Med E/e': 5.9 Lat Peak E' Francisco: 14.7 cm/sec Lat E/e': 4.2 Procedure A complete two-dimensional transthoracic echocardiogram was performed (2D, M-mode, Doppler and color flow Doppler). Left Ventricle The left ventricular size, thickness and function are normal. The left ventricular ejection fraction is normal. Ejection Fraction = 55-60%. The left ventricular wall motion is normal. Right Ventricle The right ventricle is normal in size and function. Atria Normal left and right atrial size and function. Mitral Valve There is trace mitral regurgitation. Tricuspid Valve There is trace tricuspid regurgitation. There was insufficient TR detected to calculate RV systolic p ressure. Aortic Valve The aortic valve is trileaflet. No hemodynamically significant valvular aortic stenosis. No aortic regurgitation is present. Pulmonic Valve There is no pulmonic valvular regurgitation. Great Vessels The aortic root is normal size. Pericardium/Pleura There is no pericardial effusion. Interpretation Summary The left ventricular size, thickness and function are normal The right ventricle is normal in size and function. There is trace mitral regurgitation. There is trace tricuspid regurgitation. MD Charlie Atkinson 08/08/2019 02:55 PM
[2019-08-08] MEDS: SODIUM CHLORIDE 1,000 ML IV SCH (22:57)
[2019-08-09 06:12] VITALS: TEMP 98.2
[2019-08-09] MEDS: HEPARIN NA (PORCINE) 5,000 UNITS/ML 1ML VIAL SQ SCH ×2 (06:13→14:07)
[2019-08-09] MEDS ORDERED: INSULIN (NOVOLOG) ASPART 100 UNITS/ML 10ML VIAL ONE (07:06)
[2019-08-09] MEDS ORDERED: INSULIN (LEVEMIR) 100 UNITS/ML UNITS SQ ONE (07:06)
--- NOTE | 2019-08-09 08:32 | PN ---
Progress Note (short form) - Note Progress Note: Neurology CHIEF COMPLAINT: L arm weakness and numbness PCP: none HISTORY OF PRESENT ILLNESS: Luis Fernando Peña is a 38 year old male with no significant past medical history who presented after waking up with left arm numbness and weakness and memory loss. 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 He then left for work and at work it was noticed by his boss that he wasn't able to remember the names of his coworkers and continued to have left arm weakness and numbness. The patient was picked up by his mother after 9 AM. Symptoms of difficulty name finding persisted and patient was taken to ED. Patient stated that he did not have any other associated symptoms of visual changes, field cuts, dizziness, lightheadedness, headaches, tinnitus, dysphagia, dysarthria, other areas of focal weakness or parasthesias, poor gait , chest pain, shortness of breath, nausea, vomiting, abdominal pain, constipation, diarrhea, urinary symptoms. Denies head trauma, falls, recent intoxication (had half a beer yesterday), sick contacts. Stated that he has had relatively poor appetite recently due to issues with a girlfriend and has not been consuming foods as much. Patient was receiving BGM finger stick on L finger and jumped up and yelled with pain upon stick. Head CT completed, no acute pathology, right maxillary sinustis noted. Carotid doppler completed, reviewed results and did not demonstrate any significant hemodynamic stenosis, mild intimal thickening noted. MRI brain completed, reviewed, no acute infarcts noted. Echo reviewed and discussed normal left ventricular function as well as ejection fraction. Allergies crab Allergy (Intermediate, Verified 08/07/19 17:29) Rash Active Medications Heparin Sodium (Porcine) (Heparin -) 5,000 unit SQ TID HARIKA Last Admin: 08/09/19 06:13 Dose: 5,000 unit Nicotine (Nicoderm Patch -) 14 mg TD DAILY [facility] Last Admin: 08/08/19 10:05 Dose: 14 mg PHYSICAL EXAMINATION Vital Signs Period Temp Pulse Resp BP Sys/Roberson Pulse Ox Last 24 Hr 97.6 F-98.3 F 66-90 20-20 124-138/71-94 100-100 GENERAL: Awake, alert, and fully oriented, in no acute distress. HEAD: Normal with no signs of trauma. EYES: Pupils equal, round and reactive to light, extraocular movements intact, some conjuctival injection. EARS, NOSE, THROAT: Ears normal, nares patent, oropharynx clear without exudates. Moist mucous membranes. NECK: Normal range of motion, supple without lymphadenopathy, JVD. LUNGS: Breath sounds equal, clear to auscultation bilaterally. No wheezes, and no crackles. No accessory muscle use. HEART: Regular rate and rhythm, normal S1 and S2 without murmur, rub. ABDOMEN: Soft, nontender, not distended, normoactive bowel sounds, no guarding, no rebound, no masses. MUSCULOSKELETAL: Normal range of motion at all joints. No bony deformities or tenderness. No CVA tenderness. UPPER EXTREMITIES: 2+ pulses, warm, well-perfused. No cyanosis. No clubbing. No peripheral edema. LOWER EXTREMITIES: 2+ pulses, warm, well-perfused. No calf tenderness. No peripheral edema. NEUROLOGICAL: Cranial nerves II-XII intact. Visual heath intact, no dysarthria. 5/5 muscle strength bilaterally upper and lower extremities. Sensation intact to gross touch throughout. Finger to nose and heel to daley intact. Romberg negative. PSYCHIATRIC: Cooperative. Good eye contact. Appropriate mood and affect. SKIN: Warm, dry, normal turgor, no rashes or lesions noted, normal capillary refill. CBCD WBC 3.6 K/mm3 (4.0-10.0) L 08/08/19 05:53 RBC 5.41 M/mm3 (4.00-5.60) 08/08/19 05:53 Hgb 16.6 GM/dL (11.7-16.9) 08/08/19 05:53 Hct 48.8 % (35.4-49) 08/08/19 05:53 MCV 90.3 fl (80-96) 08/08/19 05:53 MCHC 34.0 g/dl (32.0-35.9) 08/08/19 05:53 RDW 13.5 % (11.9-15.9) 08/08/19 05:53 Plt Count 271 K/MM3 (134-434) 08/08/19 05:53 MPV 8.6 fl (7.5-11.1) 08/08/19 05:53 CMP Sodium 138 mmol/L (136-145) 08/08/19 05:53 Potassium 4.5 mmol/L (3.5-5.1) 08/08/19 05:53 Chloride 105 mmol/L (98-107) 08/08/19 05:53 Carbon Dioxide 28 mmol/L (21-32) 08/08/19 05:53 Anion Gap 5 MMOL/L (8-16) L 08/08/19 05:53 BUN 12.8 mg/dL (7-18) 08/08/19 05:53 Creatinine 0.9 mg/dL (0.55-1.3) 08/08/19 05:53 Random Glucose 75 mg/dL (74-106) 08/08/19 05:53 Calcium 8.7 mg/dL (8.5-10.1) 08/08/19 05:53 Total Bilirubin 0.7 mg/dL (0.2-1) 08/08/19 05:53 AST 26 U/L (15-37) 08/08/19 05:53 ALT 55 U/L (13-61) 08/08/19 05:53 Alkaline Phosphatase 62 U/L (45-117) 08/08/19 05:53 Total Protein 6.5 g/dl (6.4-8.2) 08/08/19 05:53 Albumin 3.5 g/dl (3.4-5.0) 08/08/19 05:53 CARDIAC ENZYMES Creatine Kinase 226 U/L (26-308) 08/07/19 18:06 Troponin I < 0.02 ng/ml (0.00-0.05) 08/07/19 18:06 EKG--> NSR, no ST segment changes, QTc 385 ASSESSMENT/PLAN: Luis Fernando Peña is a 38 year old male with no significant past medical history who presented after waking up with left arm numbness and weakness and memory loss. 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 He then left for work and at work it was noticed by his boss that he wasn't able to remember the names of his coworkers and continued to have left arm weakness and numbness. The patient was picked up by his mother after 9 AM. Symptoms of difficulty name finding persisted and patient was taken to ED. Head CT completed, no acute pathology, right maxillary sinustis noted. Carotid doppler completed, reviewed results and did not demonstrate any significant hemodynamic stenosis, mild intimal thickening noted. MRI brain completed, no acute infarcts. Echo reviewed and discussed normal left ventricular function as well as ejection fraction. Likely for discharge.
[2019-08-09 08:37] VITALS: BP 128/76; PULSE 71
[2019-08-09] MEDS: NICOTINE 14 MG/24 HOURS TOPICAL PATCH TD SCH (09:24)
--- NOTE | 2019-08-09 13:08 | PN ---
Teaching Attending Note Name of Resident: Filiberto Rodriguez ATTENDING PHYSICIAN STATEMENT I saw and evaluated the patient. I reviewed the resident's note and discussed the case with the resident. I agree with the resident's findings and plan as documented. SUBJECTIVE:asymptomatic. states LUE numbness resolved early yesterday morning. felt like a glove on almost up to his shoulder. 1st episode like this. denies Cp , Sob, fever, chills, N/V/C/D denies family hx significant for CVA or hypercoagability OBJECTIVE: Last Vital Signs Temp Pulse Resp BP Pulse Ox 98.2 F 71 20 128/76 100 08/09/19 08:31 08/09/19 08:31 08/09/19 08:31 08/09/19 08:31 08/09/19 08:31 General NAD CV S1 S2 RRR no murmur/rub/gallop Lungs CTA B/L no wheezing/rales/rhonchi neuro CN II-XII grossly intact. sensation and strength equal in all 4 extremities ASSESSMENT AND PLAN: 38yo M no PMH presented with sudden onset of LUE numbness 1. LUE numbness- TIA workup initiated. head CT, carotid and echo were negative. MRI done showing Chiari malformation. symptoms have resolved. seen by neuro. will f/u in office as outpatient
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
--- NOTE | 2019-08-09 14:02 | DS ---
Physical Exam: SUBJECTIVE: Patient seen and examined OBJECTIVE: Vital Signs Period Temp Pulse Resp BP Sys/Roberson Pulse Ox Last 24 Hr 97.6 F-98.3 F 66-84 20-20 124-136/71-94 100-100 PHYSICAL EXAM GENERAL: The patient is awake, alert, and fully oriented, in no acute distress. HEAD: Normal with no signs of trauma. EYES: PERRL, extraocular movements intact, sclera anicteric, conjunctiva clear. ENT: Ears normal, nares patent, oropharynx clear without exudates, moist mucous membranes. NECK: Trachea midline, full range of motion, supple. LUNGS: Breath sounds equal, clear to auscultation bilaterally, no wheezes, no crackles, no accessory muscle use. HEART: Regular rate and rhythm, S1, S2 without murmur, rub or gallop. ABDOMEN: Soft, nontender, nondistended, normoactive bowel sounds, no guarding, no rebound, no hepatosplenomegaly, no masses. EXTREMITIES: 2+ pulses, warm, well-perfused, no edema. NEUROLOGICAL: Cranial nerves II through XII grossly intact. Normal speech, gait not observed. PSYCH: Normal mood, normal affect. SKIN: Warm, dry, normal turgor, no rashes or lesions noted. LABS Laboratory Results - last 24 hr 08/07/19 15:45 Blood Type O POSITIVE HOSPITAL COURSE: Date of Admission:08/07/19 Date of Discharge: 08/09/19 Discharge Summary Reason For Visit: TRANSIENT ISCHEMIC ATTACK,MEMORY IMPAIRMENT Current Active Problems Memory difficulties (Acute) Transient ischemic attack (Acute) Condition: Stable - Instructions Diet, Activity, Other Instructions: YOUR VISIT You came to the hospital because you were experiencing left arm weakness and difficulty with memory. You were admitted to the hospital for care of these symptoms. You were seen by a neurologist; your brain MRI had no acute findings. You are stable for discharge home. MEDICATIONS Since you do not have any home medications, we recommend you practice healthy habits including regular exercise and consuming a healthy diet. ADDITIONAL CARE Follow up with Neurologist Dr. Scott within one week of discharge. A referral has been provided. You will further discuss your symptoms, and MRI findings. Please make an appointment to see a primary care provider 1 week from today. Since you do not have one, you can call to schedule an appointment at the [facility] residents' clinic, located at [address] [place] [address]. If you would like to continue seeing Dr. Filiberto Rodriguez, please ask for a Monday morning appointment. ADDITIONAL INFORMATION Please call 911 or come directly to the emergency department if you experience unusual headache, vision change, shortness of breath, chest pain, numbness, tingling, loss of alertness/awareness, loss of function, unusual bleeding or any alarming symptoms. Referrals: Robert Radford MD [Staff Physician] - 1 Week Jax Scott MD [Staff Physician] - 1 Week Disposition: HOME ATTENDING PHYSICIAN STATEMENT I saw and evaluated the patient. I reviewed the resident's note and discussed the case with the resident. I agree with the resident's findings and plan as documented. SUBJECTIVE: OBJECTIVE: ASSESSMENT AND PLAN:
== END 2019-08-09 14:29 | disposition home or self-care (01) ==
LOC: JER 17:20 → INTOOBSV 20:30 → JERBED 20:30 → J4W 08-08 04:46
PROVIDERS: ADMIT Internal Medicine; ATTEND Internal Medicine
PROC: 3E0337Z Introduction of Electrolytic and Water Balance Substance into Peripheral Vein, Percutaneous Approach (ICD-10-PCS; principal; 2019-08-07)
PROC: 3E013GC Introduction of Other Therapeutic Substance into Subcutaneous Tissue, Percutaneous Approach (ICD-10-PCS; 2019-08-07)
DX: G45.9 Transient cerebral ischemic attack, unspecified (principal); R41.3 Other amnesia; R20.0 Anesthesia of skin; R53.1 Weakness; F17.210 Nicotine dependence, cigarettes, uncomplicated; Z91.013 Allergy to seafood; N17.9 Acute kidney failure, unspecified; R73.9 Hyperglycemia, unspecified
CPT/HCPCS: 36415; 70450-TC; 70551-TC; 71045-TC-FY; 80053; 80061; 80307; 81003; 82550; 82553; 82668; 82962; 83036; 83721; 83735; 84443; 84484; 85025; 85027; 85610; 86850; 86900; 86901; 87086; 93005; 93010; 93306-TC; 93880-TC; 97116-GP; 97161-GP; 99285-25; G0378; J1644; J7030

== ENCOUNTER 2019-09-15 21:53 | Inpatient (IN) | payer BC ==
[2019-09-15 22:59] VITALS: BMI 28.5
--- NOTE | 2019-09-15 23:07 | HP ---
CIWA Score Nausea/Vomitin Muscle Tremors: 3 Anxiety: 2 Agitation: 2 Paroxysmal Sweats: 2 Orientation: 0-Oriented Tacttile Disturbances: 2-Mild Itch/Numbness/Burn Auditory Disturbances: 2-Mild Harshness/Frighten Visual Disturbances: 1-Very Mild Sensitivity Headache: 2-Mild CIWA-Ar Total Score: 18 - Admission Criteria OASAS Guidelines: Admission for Medically Managed Detox: Requires at least one of the followin. CIWA greater than 12 2. Seizures within the past 24 hours 3. Delirium tremens within the past 24 hours 4. Hallucinations within the past 24 hours 5. Acute intervention needed for co occurring medical disorder 6. Acute intervention needed for co occurring psychiatric disorder 7. Severe withdrawal that cannot be handled at a lower level of care (continued vomiting, continued diarrhea, abnormal vital signs) requiring intravenous medication and/or fluids 8. Admitting History and Physical - Admission History Source: Patient - Past Medical History Pulmonary: Yes: Asthma Psych: Yes: Anxiety, Depression - Smoking History Smoking history: Current every day smoker Have you smoked in the past 12 months: Yes Aproximately how many cigarettes per day: 10 - Alcohol/Substance Use Hx Alcohol Use: No Admission ROS BHS - HPI Chief Complaint: DEPENDENT ON ETOH ONLY Allergies/Adverse Reactions: Allergies Allergy/AdvReac Type Severity Reaction Status Date / Time crab Allergy Intermediate Rash Verified 09/15/19 22:43 History of Present Illness: THE PT. IS REQUESTING ADMISSION TO THE DETOX UNIT AND CAME FOR MEDICAL CLEARANCE Exam Limitations: No Limitations - Ebola screening Have you traveled outside of the country in the last 21 days: No (N) Have you had contact with anyone from an Ebola affected area: No Do you have a fever: No - Review of Systems Constitutional: See HPI, Malaise, Weakness EENT: reports: See HPI Respiratory: reports: See HPI, Wheezing Cardiac: reports: See HPI GI: reports: See HPI, Diarrhea, Nausea, Abdominal cramping Musculoskeletal: reports: See HPI, Muscle Pain, Muscle Weakness Integumentary: reports: See HPI, Sweating Neuro: reports: See HPI, Headache, Tremors, Weakness Endocrine: reports: See HPI Hematology: reports: See HPI Psychiatric: reports: Judgement Intact, Orientated x3, Anxious, Depressed Patient History - Patient Medical History Hx Asthma: Yes Hx Chronic Obstructive Pulmonary Disease (COPD): No Hx Human Immunodeficiency Virus (HIV): No Hx Hepatitis C: No Hx Depression: Yes (AND ANXIETY) - Patient Surgical History Past Surgical History: No - Smoking Cessation Smoking history: Current every day smoker Have you smoked in the past 12 months: Yes Aproximately how many cigarettes per day: 10 Hx Chewing Tobacco Use: No Initiated information on smoking cessation: Yes 'Breaking Loose' booklet given: 09/15/19 - Substance & Tx. History Hx Alcohol Use: Yes Hx Substance Use: No Substance Use Type: Alcohol Hx Substance Use Treatment: Yes - Substances abused Alcohol Substance route: Oral Frequency: 3-6 times per week Amount used: 3 TO 4 BEERS Age of first use: 24 Date of last use: 09/15/19 Admission Physical Exam S - Vital Signs Vital Signs: Vital Signs - 24 hr 09/15/19 22:46 Temperature 97.3 F L Pulse Rate 106 H Respiratory 16 Rate Blood Pressure 135/87 - Physical General Appearance: Yes: No Apparent Distress, Nourished, Appropriately Dressed , Tremorous, Sweating, Anxious HEENTM: Yes: Hearing grossly Normal, Normocephalic, Normal Voice, TRU, Pharynx Normal Respiratory: Yes: Chest Non-Tender, Lungs Clear, Normal Breath Sounds, No Respiratory Distress, No Accessory Muscle Use Neck: Yes: No masses,lesions,Nodules, Supple, Trachea in good position Breast: Yes: Breast Exam Deferred, Axillae without masses Cardiology: Yes: Regular Rhythm, S1, S2, Tachycardia Abdominal: Yes: Normal Bowel Sounds, Non Tender, Protuberent Back: Yes: Normal Inspection Musculoskeletal: Yes: full range of Motion, Gait Steady, Pelvis Stable, Muscle Pain, Muscle weakness Extremities: Yes: Normal Capillary Refill, Normal Range of Motion, Non-Tender, Tremors 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 II-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 NML intact, Fully Oriented, Alert, Motor Strength 5/5, Normal Response, Depressed Affect Integumentary: Yes: Normal Color, Warm, Moist Lymphatic: Yes: Within Normal Limits - Diagnostic (1) EtOH dependence Current Visit: Yes Status: Chronic Qualifiers: Substance use status: uncomplicated Qualified Code(s): F10.20 - Alcohol dependence, uncomplicated (2) Asthma Current Visit: Yes Status: Chronic Qualifiers: Asthma severity: mild Asthma complication type: uncomplicated (3) Anxiety and depression Current Visit: Yes Status: Chronic (4) Nicotine dependence Current Visit: Yes Status: Chronic Qualifiers: Nicotine product type: cigarettes Cleared for Admission S - Detox or Rehab [facility] Level of Care: Medically Supervised Detox Regimen/Protocol: Librium Claeared for Rehab Admission: Yes Breathalyzer - Breathalyzer Breathalyzer: 0 Inpatient Rehab Admission - Rehab Decision to Admit Inpatient rehab admission?: No
[2019-09-15] MEDS ORDERED: MAGNESIUM HYDROX 2400MG/30ML ORAL SUSPENSION 30 ML CUP PO PRN (23:17)
[2019-09-15] MEDS ORDERED: chlordiazePOXIDE HCL 25 MG CAPSULE PO PRN (23:17)
[2019-09-15] MEDS ORDERED: IBUPROFEN 400 MG TABLET (FP) PO PRN (23:17)
[2019-09-15] MEDS ORDERED: NICOTINE POLACRILEX 2 MG GUM BUC PRN (23:17)
[2019-09-15] MEDS ORDERED: MAG HYDROX/AL HYDROX/SIMETH 30 ML UNIT-DOSE CUP PO PRN (23:17)
[2019-09-15] MEDS ORDERED: MELATONIN 5 MG TABLETS PO PRN (23:17)
[2019-09-15] MEDS ORDERED: ACETAMINOPHEN 325 MG TABLET (FP) PO PRN ×2 (23:17)
[2019-09-15] MEDS ORDERED: MAGNESIUM CITRATE 300 ML BOTTLE PO PRN (23:17)
[2019-09-15] MEDS ORDERED: chlordiazePOXIDE HCL 25 MG CAPSULE PO ONE (23:17)
[2019-09-15] MEDS ORDERED: MENTHOL/PHENOL 1 EACH UD MM PRN (23:17)
[2019-09-15] MEDS ORDERED: METHOCARBAMOL 500 MG TABLET PO PRN (23:17)
[2019-09-15] MEDS ORDERED: BISMUTH SUBSALICYLATE 524 MG/30 ML UD PO PRN (23:17)
[2019-09-15] MEDS ORDERED: hydrOXYzine PAMOATE 25 MG CAPSULE (FP) PO PRN (23:17)
[2019-09-15] MEDS ORDERED: ALBUTEROL SO4 2.5/IPRATROPIUM 0.5 INH SOL 3 ML VIAL.NEB. NEB PRN (23:19)
[2019-09-16] MEDS: chlordiazePOXIDE HCL 25 MG CAPSULE PO SCH ×5 (00:57→22:40)
[2019-09-16 09:54] LABS: HEMATOCRIT 49.9 % (35.4-49); HEMOGLOBIN 16.8 GM/dL (11.7-16.9); MCH 30.3 pg (25.7-33.7); MCHC 33.7 g/dl (32.0-35.9); MEAN CELL VOLUME 89.9 fl (80-96); MEAN PLT VOLUME 8.6 fl (7.5-11.1); PLATELET COUNT 314 K/MM3 (134-434); RBC 5.56 M/mm3 (4.00-5.60); RDW 13.6 % (11.9-15.9); WHITE BLOOD COUNT 2.9 K/mm3 (4.0-10.0)
[2019-09-16 10:08] LABS: ALBUMIN 3.7 g/dl (3.4-5.0); BILIRUBIN,TOTAL 0.3 mg/dL (0.2-1); BLOOD UREA NITROGEN 8.9 mg/dL (7-18); CALCIUM 9.1 mg/dL (8.5-10.1); CREATININE 0.8 mg/dL (0.55-1.3); POTASSIUM 4.6 mmol/L (3.5-5.1); TOT PROT 7.1 g/dl (6.4-8.2)
[2019-09-16] MEDS: PRENATAL VITAMINS W/ FOLIC ACID TABLET (FP) PO SCH (11:07)
[2019-09-16] MEDS: NICOTINE 14 MG/24 HOURS TOPICAL PATCH TD SCH (11:07)
--- NOTE | 2019-09-16 12:46 | PN ---
S CIWA - CIWA Score Nausea/Vomitin-No Nausea/No Vomiting Muscle Tremors: 2 Anxiety: 4-Mod. Anxious/Guarded Agitation: 1-Slight > Activity Paroxysmal Sweats: 1-Minimal Palms Moist Orientation: 0-Oriented Tacttile Disturbances: 0-None Auditory Disturbances: 0-None Visual Disturbances: 0-None Headache: 2-Mild CIWA-Ar Total Score: 10 BHS Progress Note (SOAP) Subjective: PATIENT PRESENTS FOR ETOH DETOX. COMPLAINS OF ANXIETY, HEADACHE, SHAKES AND MILD SWEATING. Objective: 09/16/19 12:44 Vital Signs Temperature 98.1 F 09/16/19 09:51 Pulse Rate 76 09/16/19 09:51 Respiratory Rate 18 09/16/19 09:51 Blood Pressure 121/96 09/16/19 09:51 O2 Sat by Pulse Oximetry (%) Laboratory Tests 09/16/19 09/16/19 09/16/19 08:20 08:20 08:20 WBC 2.9 L RBC 5.56 Hgb 16.8 Hct 49.9 H MCV 89.9 MCH 30.3 MCHC 33.7 RDW 13.6 Plt Count 314 MPV 8.6 Sodium 142 Potassium 4.6 Chloride 108 H Carbon Dioxide 29 Anion Gap 5 L BUN 8.9 Creatinine 0.8 Est GFR (CKD-EPI)AfAm 132.27 Est GFR (CKD-EPI)NonAf 114.12 Random Glucose 93 Calcium 9.1 Total Bilirubin 0.3 AST 18 ALT 39 Alkaline Phosphatase 75 Total Protein 7.1 Albumin 3.7 RPR Titer Nonreactive PE ALERT AND ORIENTED X 3 SKIN WARM, +FACIAL MOISTURE +PERRLA, EOMS INTACT BL CAR S1S2 RESP CTA BL EXT MILD TREMORS, NO SWELLING Assessment: 09/16/19 12:45 ETOH DETOX WITHDRAWAL SX Plan: CONTINUE DETOX ENCOURAGE FLUIDS MONITOR CLINICALLY
[2019-09-16] MEDS: THIAMINE HCL 100 MG TABLET (FP) PO SCH (22:40)
[2019-09-17] MEDS: chlordiazePOXIDE HCL 25 MG CAPSULE PO SCH ×4 (06:30→22:24)
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
[2019-09-17] MEDS: PRENATAL VITAMINS W/ FOLIC ACID TABLET (FP) PO SCH (10:50)
[2019-09-17] MEDS: NICOTINE 14 MG/24 HOURS TOPICAL PATCH TD SCH (10:50)
--- NOTE | 2019-09-17 11:50 | PN ---
S CIWA - CIWA Score Nausea/Vomitin-No Nausea/No Vomiting Muscle Tremors: 2 Anxiety: 2 Agitation: 2 Paroxysmal Sweats: 2 Orientation: 0-Oriented Tacttile Disturbances: 0-None Auditory Disturbances: 0-None Visual Disturbances: 0-None Headache: 0-None Present CIWA-Ar Total Score: 8 BHS Progress Note (SOAP) Subjective: sweats shakes interrupted sleep body aches Objective: 09/17/19 11:50 Vital Signs Temperature 96.6 F L 09/17/19 09:48 Pulse Rate 87 09/17/19 09:48 Respiratory Rate 18 09/17/19 09:48 Blood Pressure 136/82 09/17/19 09:48 O2 Sat by Pulse Oximetry (%) Laboratory Tests 09/16/19 09/16/19 09/16/19 08:20 08:20 08:20 WBC 2.9 L RBC 5.56 Hgb 16.8 Hct 49.9 H MCV 89.9 MCH 30.3 MCHC 33.7 RDW 13.6 Plt Count 314 MPV 8.6 Sodium 142 Potassium 4.6 Chloride 108 H Carbon Dioxide 29 Anion Gap 5 L BUN 8.9 Creatinine 0.8 Est GFR (CKD-EPI)AfAm 132.27 Est GFR (CKD-EPI)NonAf 114.12 Random Glucose 93 Calcium 9.1 Total Bilirubin 0.3 AST 18 ALT 39 Alkaline Phosphatase 75 Total Protein 7.1 Albumin 3.7 RPR Titer Nonreactive labs noted aaox3 ambulating no acute distress Assessment: 09/17/19 11:50 withdrawals Plan: continue detox increase fluids
[2019-09-17] MEDS: THIAMINE HCL 100 MG TABLET (FP) PO SCH (22:24)
[2019-09-18] MEDS ORDERED: chlordiazePOXIDE HCL 10 MG CAPSULE PO PRN
[2019-09-18] MEDS: chlordiazePOXIDE HCL 10 MG CAPSULE PO SCH ×4 (05:36→22:40)
--- NOTE | 2019-09-18 10:07 | PN ---
S CIWA - CIWA Score Nausea/Vomitin-No Nausea/No Vomiting Muscle Tremors: 2 Anxiety: 2 Agitation: 2 Paroxysmal Sweats: 1-Minimal Palms Moist Orientation: 0-Oriented Tacttile Disturbances: 0-None Auditory Disturbances: 0-None Visual Disturbances: 0-None Headache: 0-None Present CIWA-Ar Total Score: 7 BHS Progress Note (SOAP) Subjective: feeling better sweats anxiety Objective: 09/18/19 10:08 Vital Signs Temperature 96.6 F L 09/18/19 09:29 Pulse Rate 93 H 09/18/19 09:29 Respiratory Rate 18 09/18/19 09:29 Blood Pressure 137/80 09/18/19 09:29 O2 Sat by Pulse Oximetry (%) Laboratory Tests 09/16/19 09/16/19 09/16/19 08:20 08:20 08:20 WBC 2.9 L RBC 5.56 Hgb 16.8 Hct 49.9 H MCV 89.9 MCH 30.3 MCHC 33.7 RDW 13.6 Plt Count 314 MPV 8.6 Sodium 142 Potassium 4.6 Chloride 108 H Carbon Dioxide 29 Anion Gap 5 L BUN 8.9 Creatinine 0.8 Est GFR (CKD-EPI)AfAm 132.27 Est GFR (CKD-EPI)NonAf 114.12 Random Glucose 93 Calcium 9.1 Total Bilirubin 0.3 AST 18 ALT 39 Alkaline Phosphatase 75 Total Protein 7.1 Albumin 3.7 RPR Titer Nonreactive labs noted aaox3 ambulating no acute distress Assessment: 09/18/19 10:08 mild withdrawals Plan: continue detox increase fluids
[2019-09-18] MEDS: NICOTINE 14 MG/24 HOURS TOPICAL PATCH TD SCH (10:13)
[2019-09-18] MEDS: PRENATAL VITAMINS W/ FOLIC ACID TABLET (FP) PO SCH (10:14)
[2019-09-18] MEDS: THIAMINE HCL 100 MG TABLET (FP) PO SCH (22:40)
[2019-09-19] MEDS ORDERED: chlordiazePOXIDE HCL 10 MG CAPSULE PO SCH (05:00)
--- NOTE | 2019-09-19 09:08 | DS ---
[facility] Detox Discharge Summary Admission Date: 09/15/19 Discharge Date: 09/19/19 - History Present History: Alcohol Dependence - Physical Exam Results Vital Signs: Vital Signs Temperature 98.1 F 09/19/19 07:34 Pulse Rate 86 09/19/19 07:34 Respiratory Rate 18 09/19/19 07:34 Blood Pressure 138/75 09/19/19 07:34 O2 Sat by Pulse Oximetry (%) Pertinent Admission Physical Exam Findings: pt arrived in withdrawals Vital Signs Temperature 98.1 F 09/19/19 07:34 Pulse Rate 86 09/19/19 07:34 Respiratory Rate 18 09/19/19 07:34 Blood Pressure 138/75 09/19/19 07:34 O2 Sat by Pulse Oximetry (%) Laboratory Tests 09/16/19 09/16/19 09/16/19 08:20 08:20 08:20 WBC 2.9 L RBC 5.56 Hgb 16.8 Hct 49.9 H MCV 89.9 MCH 30.3 MCHC 33.7 RDW 13.6 Plt Count 314 MPV 8.6 Sodium 142 Potassium 4.6 Chloride 108 H Carbon Dioxide 29 Anion Gap 5 L BUN 8.9 Creatinine 0.8 Est GFR (CKD-EPI)AfAm 132.27 Est GFR (CKD-EPI)NonAf 114.12 Random Glucose 93 Calcium 9.1 Total Bilirubin 0.3 AST 18 ALT 39 Alkaline Phosphatase 75 Total Protein 7.1 Albumin 3.7 RPR Titer Nonreactive today pt is aaox3 ambulating no acute distress no s/s of withdrawals - Treatment Hospital Course: Detox Protocol Followed, Detoxed Safely, Responded well, Discharged Condition Good, Rehab Referral Accepted Patient has Accepted a Rehab Referral to: pt declined rehab; referral provided - Medication Discharge Medications: Ambulatory Orders NK [No Known Home Medication] 09/15/19 - Diagnosis (1) Uncomplicated alcohol dependence Current Visit: Yes Status: Chronic (2) Anxiety and depression Current Visit: Yes Status: Chronic (3) Asthma Current Visit: Yes Status: Chronic Qualifiers: Asthma severity: mild Asthma complication type: uncomplicated (4) Nicotine dependence Current Visit: Yes Status: Chronic Qualifiers: Nicotine product type: cigarettes Substance use status: uncomplicated Qualified Code(s): F17.210 - Nicotine dependence, cigarettes, uncomplicated (5) Atypical chest pain Current Visit: No Status: Acute (6) Back pain Current Visit: No Status: Acute Qualifiers: Back pain location: low back pain Chronicity: acute Back pain laterality : bilateral Sciatica presence: unspecified whether sciatica present Qualified Code(s): M54.5 - Low back pain (7) Eloped Current Visit: No Status: Acute (8) Left ankle injury Current Visit: No Status: Acute (9) Memory difficulties Current Visit: No Status: Acute (10) Muscle strain Current Visit: No Status: Acute (11) Musculoskeletal pain Current Visit: No Status: Acute (12) Transient ischemic attack Current Visit: No Status: Acute - AMA Did Patient Leave Against Medical Advice: No
[2019-09-19] MEDS: PRENATAL VITAMINS W/ FOLIC ACID TABLET (FP) PO SCH (09:29)
[2019-09-19] MEDS: NICOTINE 14 MG/24 HOURS TOPICAL PATCH TD SCH (09:30)
[2019-09-19 09:35] VITALS: BP 146/82; PULSE 100; TEMP 97.9
[2019-09-20] MEDS ORDERED: chlordiazePOXIDE HCL 10 MG CAPSULE PO ONE (05:00)
== END 2019-09-19 09:32 | disposition home or self-care (01) | DRG 897 ==
LOC: YASAS 21:53 → Y6N 23:27
PROVIDERS: ADMIT Allergy & Immunology; ATTEND Allergy & Immunology
PROC: HZ2ZZZZ Detoxification Services for Substance Abuse Treatment (ICD-10-PCS; principal; 2019-09-15)
DX: F10.230 Alcohol dependence with withdrawal, uncomplicated (principal); F17.210 Nicotine dependence, cigarettes, uncomplicated; F41.8 Other specified anxiety disorders; F32.9 Major depressive disorder, single episode, unspecified; J45.909 Unspecified asthma, uncomplicated; R41.3 Other amnesia; M79.18 Myalgia, other site; Z86.73 Personal history of transient ischemic attack (TIA), and cerebral infarction without residual deficits; Z91.013 Allergy to seafood; Z91.19 Patient's noncompliance with other medical treatment and regimen
CPT/HCPCS: 36415; 80053; 85027; 86593

== ENCOUNTER 2020-10-18 07:59 | Emergency (ER) | payer SELFPAY ==
[2020-10-18 08:22] VITALS: BMI 27.3
[2020-10-18] MEDS ORDERED: SODIUM CHLORIDE 0.9% 500 ML INFUS.BAG IV ONE (08:35)
[2020-10-18] MEDS ORDERED: MAG HYDROX/AL HYDROX/SIMETH 30 ML UNIT-DOSE CUP PO ONE (08:35)
[2020-10-18] MEDS ORDERED: FAMOTIDINE 20 MG/50 ML IVPB 20 MG/50 ML MG IVPB ONE ×2 (08:35→09:20)
[2020-10-18] MEDS ORDERED: NICOTINE 7 MG/24 HOURS TOPICAL PATCH TD ONE (08:36)
[2020-10-18 09:19] LABS: BASO % 0.7 % (0-2.0); EOS % 4.2 % (0-4.5); HEMATOCRIT 49.9 % (35.4-49); HEMOGLOBIN 16.8 GM/dL (11.7-16.9); LYMPH % 32.8 % (8-40); MCH 30.2 pg (25.7-33.7); MCHC 33.7 g/dl (32.0-35.9); MEAN CELL VOLUME 89.5 fl (80-96); MEAN PLT VOLUME 8.3 fl (7.5-11.1); MONO % 11.7 % (3.8-10.2); NEUT % 50.6 % (42.8-82.8); PLATELET COUNT 300 K/MM3 (134-434); RBC 5.58 M/mm3 (4.00-5.60); WHITE BLOOD COUNT 3.9 K/mm3 (4.0-10.0)
[2020-10-18] MEDS ORDERED: MAG HYDROX/AL HYDROX/SIMETH 30 ML UNIT-DOSE CUP ONE (09:19)
[2020-10-18 09:26] LABS: INR 1.11 (0.83-1.09); PROTHROMBIN TIME (PATIENT) 13.6 SEC (9.7-13.0)
[2020-10-18 09:39] LABS: CHLORIDE 102 mmol/L (98-107); POTASSIUM 4.2 mmol/L (3.5-5.1); SODIUM 136 mmol/L (136-145)
[2020-10-18 09:42] LABS: ALBUMIN 3.9 g/dl (3.4-5.0); ANION GAP 5 MMOL/L (8-16); BLOOD UREA NITROGEN 9.3 mg/dL (7-18); CO2 29 mmol/L (21-32); GLUCOSE,RANDOM 76 mg/dL (74-106); LIPASE 91 U/L (73-393)
[2020-10-18 09:43] VITALS: TEMP 98
[2020-10-18 09:44] LABS: CREATININE 0.9 mg/dL (0.55-1.3); SGOT/AST 37 U/L (15-37); SGPT/ALT 72 U/L (13-61)
[2020-10-18 09:46] LABS: BILIRUBIN,TOTAL 0.5 mg/dL (0.2-1); TOT PROT 7.6 g/dl (6.4-8.2)
[2020-10-18 09:47] LABS: ALK PHOS 78 U/L (45-117)
[2020-10-18 11:14] VITALS: BP 136/80; PULSE 80
== END 2020-10-18 11:15 | disposition home or self-care (01) ==
LOC: JER 07:59
PROC: 3E033NZ Introduction of Analgesics, Hypnotics, Sedatives into Peripheral Vein, Percutaneous Approach (ICD-10-PCS; principal; 2020-10-18)
DX: M94.0 Chondrocostal junction syndrome [Tietze] (principal); R07.89 Other chest pain
CPT/HCPCS: 36415; 71046-TC-FY; 76705-TC; 80053; 82550; 82553; 83690; 84484; 85025; 85610; 93005; 93010; 99285-25

== ENCOUNTER 2021-08-09 09:19 | Emergency (ER) | payer OTHER ==
[2021-08-09 09:26] VITALS: BP 140/99; PULSE 75; TEMP 98; BMI 27.3
[2021-08-09] MEDS ORDERED: KETOROLAC TROMETHAMINE 30 MG/1 ML VIAL IM ONE (09:30)
[2021-08-09] MEDS ORDERED: ACETAMINOPHEN 500 MG TABLET (FP) PO ONE (09:30)
[2021-08-09] MEDS ORDERED: KETOROLAC TROMETHAMINE 30 MG/1 ML VIAL ONE (09:33)
[2021-08-09] MEDS ORDERED: ACETAMINOPHEN 325 MG TABLET (FP) ONE (09:34)
== END 2021-08-09 09:48 | disposition home or self-care (01) ==
LOC: FER 09:19
PROC: 3E0233Z Introduction of Anti-inflammatory into Muscle, Percutaneous Approach (ICD-10-PCS; principal; 2021-08-09)
DX: T23.121A Burn of first degree of single right finger (nail) except thumb, initial encounter (principal); X15.8XXA Contact with other hot household appliances, initial encounter
CPT/HCPCS: 99284-25

== ENCOUNTER 2022-09-24 09:51 | Emergency (ER) | payer OTHER ==
[2022-09-24 10:19] VITALS: BP 124/79; PULSE 95; RESP 20; TEMP 98.7; BMI 29.0
[2022-09-24] MEDS ORDERED: LIDOCAINE 5% TOPICAL PATCH TP ONE (11:07)
[2022-09-24] MEDS ORDERED: KETOROLAC TROMETHAMINE 30 MG/1 ML VIAL IM ONE (11:07)
[2022-09-24] MEDS ORDERED: KETOROLAC TROMETHAMINE 30 MG/1 ML VIAL ONE (11:10)
[2022-09-24] MEDS ORDERED: LIDOCAINE 5% TOPICAL PATCH ONE (11:10)
[2022-09-24] MEDS ORDERED: LIDOCAINE PATCH REMOVAL MC SCH (22:00)
== END 2022-09-24 12:58 | disposition home or self-care (01) ==
LOC: JERFT 09:51
PROC: 3E0233Z Introduction of Anti-inflammatory into Muscle, Percutaneous Approach (ICD-10-PCS; principal; 2022-09-24)
DX: M54.50 Low back pain, unspecified (principal)
CPT/HCPCS: 96372; 99284-25

== ENCOUNTER 2023-07-17 10:07 | Emergency (ER) | payer OTHER ==
[2023-07-17 10:24] VITALS: BMI 28.1
[2023-07-17 11:43] VITALS: BP 109/67; PULSE 79; RESP 16; TEMP 97.5
== END 2023-07-17 11:44 | disposition home or self-care (01) ==
LOC: JER 10:07
DX: K59.00 Constipation, unspecified (principal)
CPT/HCPCS: 99282-25

== ENCOUNTER 2024-10-01 09:54 | Emergency (ER) | payer OTHER ==
[2024-10-01 10:21] VITALS: BP 151/103; PULSE 107; RESP 18; TEMP 98.1; BMI 28.1
[2024-10-01] MEDS ORDERED: IBUPROFEN 600 MG TABLET (FP) PO ONE (10:59)
[2024-10-01] MEDS: IBUPROFEN 600 MG TABLET (FP) PO ONE (11:01)
[2024-10-01 11:16] LABS: HEMATOCRIT 52.2 % (35.4-49); HEMOGLOBIN 17.7 G/dL (11.7-16.9); MCH 30.6 pg (25.7-33.7); MEAN CELL VOLUME 90.2 fl (80-96); MEAN PLT VOLUME 8.9 fl (7.5-11.1); PLATELET COUNT 265.3 10^3/uL (134-434); RBC 5.79 10^6/uL (4.00-5.60); RDW 13.3 % (11.9-15.9); WHITE BLOOD COUNT 6.4 10^3/uL (4.0-10.8)
[2024-10-01 11:34] LABS: CREATININE 1.3 mg/dl (0.6-1.3); POTASSIUM 4.2 mmol/L (3.5-5.1)
[2024-10-01 11:35] LABS: BILIRUBIN,TOTAL 0.6 mg/dl (0.2-1); TOT PROT 7.4 g/dl (6.4-8.2)
[2024-10-01 12:24] LABS: PLATELET ESTIMATE ADEQUATE
[2024-10-01 12:40] LABS: ERYTHROCYTE SEDIMENTATION RATE 1 mm/hr (0-10)
== END 2024-10-01 13:06 | disposition home or self-care (01) ==
LOC: FER 09:54
DX: G44.209 Tension-type headache, unspecified, not intractable (principal); H92.03 Otalgia, bilateral
CPT/HCPCS: 36415; 80053; 85027; 85651; 86140; 99283-25